=== PATIENT | female | born 1995 | race Asian ===

== ENCOUNTER 2023-11-21 09:12 | Emergency (ER) | payer OTHER ==
[~2023-11-21] VITALS: Ht 165.1 cm; Wt 68.2 kg
[2023-11-21 10:08] VITALS: BP 119/73; PULSE 94; RESP 16; TEMP 98.6; O2SAT 97
[2023-11-21 10:08] LABS: Urine Bacteria FEW /hpf (None Seen); Urine Blood Negative /uL (Negative); Urine Clarity Clear (Clear); Urine Color Yellow (Yellow); Urine Protein, UAD Negative (Negative); Urine Specific Gravity 1.015 (1.001-1.035); Urine Urobilinogen Normal (Negative); Urine WBC 53 /hpf (0 - 5)
[2023-11-21] MEDS ORDERED: CEFP200T15 PO (10:46)
[2023-11-21] MEDS: cefTRIAXone SOD 1,000 MG VL IM ONE (11:09)
== END 2023-11-21 11:13 | disposition home or self-care (01) ==
LOC: ER 09:12
DX: N39.0 Urinary tract infection, site not specified (principal); Z32.02 Encounter for pregnancy test, result negative
CPT/HCPCS: 81001; 81025; 96372; 99283; J0696

== ENCOUNTER 2025-02-11 09:54 | Emergency (ER) | payer MEDICAID, OTHER ==
[~2025-02-11] VITALS: Ht 165.1 cm; Wt 71.6 kg
[~2025-02-11 09:54] MED LIST: CEFP200T15 PO
[2025-02-11 10:48] VITALS: BP 106/80; PULSE 95; RESP 20; TEMP 98; O2SAT 96
--- NOTE | 2025-02-11 11:09 | ED.PDOC ---
Musculoskeletal HPI Comments This is a 29 year old female presenting to the ED with chief complaint of right toe numbness and pain. Patient reports that she began to experience sudden onset of right 4th/5th toe numbness with a point of tenderness and redness to the base of the 5th toe. Patient relays that she believes she may have stubbed her toe, but is unsure when she did. Patient denies any fever, chills, tingling, weakness, or difficulty ambulating. Chief Complaint: Lower Extremity Time Seen by MD: 11:06 Reviewed Notes: Nurses Notes, Medications, Allergies Allergies: Coded Allergies: NO KNOWN ALLERGIES (Unverified , 02/11/25) Information Source: Patient Mode of Arrival: Ambulatory Location: Right Extremity Location: Little Toe, Toe 4 Timing: Days Prehospital treatment: None Severity: Moderate Able to Move Extremity: Yes Bear Weight: Fully Pain: Moderate Mechanism: Unknown, Spontaneous Circumstances: Spontaneous Onset of Symptoms: Spontaneous Symptoms: Pain, Erythema DVT Risk Factors: NONE Past Medical History PAST MEDICAL HISTORY: Denies Surgical History: Denies all surgeries TREATING PLANT OPERATOR History: No Pertinent TREATING PLANT OPERATOR History Family History Family History: Reviewed,noncontributory to illness Social History Smoker: Non-Smoker Alcohol: Denies ETOH Use Drugs: Denies Drug Use Lives In: Home Constitutional: denies: chills, diaphoresis, fatigue, fever, malaise, sweats, weakness, others EENTM: denies: blurred vision, double vision, ear bleeding, ear discharge, ear drainage, ear pain, ear ringing, eye pain, eye redness, hearing loss, mouth pain, mouth swelling, nasal discharge, nose bleeding, nose congestion, nose pain, photophobia, tearing, throat pain, throat swelling, voice changes, others Respiratory: denies: cough, hemoptysis, orthopnea, SOB at rest, shortness of breath, SOB with excertion, stridor, wheezing, others Cardiovascular: denies: chest pain, dizzy spells, diaphoresis, Dyspnea on exertion, edema, irregular heart beat, left arm pain, lightheadedness, palpitations, PND, syncope, others Gastrointestinal: denies: abdomen distended, abdominal pain, blood streaked bowels, constipated, diarrhea, dysphagia, difficulty swallowing, hematemesis, melena, nausea, poor appetite, poor fluid intake, rectal bleeding, rectal pain, vomiting, others Genitourinary: denies: abnormal vagina bleeding, burning, dyspareunia, dysuria, flank pain, frequency, hematuria, incontinence, pain, , vagina discharge, urgency, others Neurological: denies: dizziness, fainting, headache, left sided numbness, left sided weakness, numbness, paresthesia, pre-existing deficit, right sided numbness, right sided weakness, seizure, speech problems, tingling, tremors, weakness, others Musculoskeletal: reports: others (Rt toe pain and numbness); denies: back pain, gout, joint pain, joint swelling, muscle pain, muscle stiffness, neck pain Integumetry: denies: bruises, change in color, change in hair/nails, dryness, laceration, lesions, lumps, rash, wounds, others Allergic/Immunocompromised: denies: Difficulty Healing, Frequent Infections, Hives, Itching, others Hematologic/Lymphatic: denies: anemia, blood clots, easy bleeding, easy bruising, swollen glands, others Endocrine: denies: excessive hunger, excessive sweating, excessive thirst, excessive urination, flushing, intolerance to cold, intolerance to heat, unexplained weight gain, unexplained weight loss, others Psychiatric: denies: anxiety, bipolar disorder, depression, hopeless, panic disorder, schizophrenia, sleepless, suicidal, others All Other Systems: Reviewed and Negative Physical Exam General Appearance: No Apparent Distress, Normal HEENT: Normal ENT Inspection, Pharynx Normal, TMs Normal Neck: Full Range of Motion, Non-Tender, Normal, Normal Inspection Respiratory: Chest Non-Tender, Lungs Clear, No Accessory Muscle Use, No Respiratory Distress, Normal Breath Sounds Cardiovascular: No Edema, No JVD, No Murmur, No Gallop, Normal Peripheral Pulses, Regular Rate/Rhythm Breast Exam: Deferred Gastrointestinal: No Organomegaly, Non Tender, No Pulsatile Mass, Normal Bowel Sounds, Soft Genitalia: Deferred Pelvic: Deferred Rectal: Deferred Extremities: No calf tenderness, Normal capillary refill, Normal inspection, Normal range of motion, Non-tender, No pedal edema Musculoskeletal : Apperance: Normal Neurologic: Alert, park services specialist II-XII nml as Tested, No Motor Deficits, Normal Affect, Normal Mood, No Sensory Deficits Cerebellar Function: Normal Reflexes: Normal Skin: Dry, Normal Color, Warm, Other (Erythema noted to base of right 5th toe.) Lymphatic: No Adenopathy Was a procedure done? Was a procedure done?: No Differential Diagnosis EXT Differential Diagnosis: Cellulitis, Fracture, Sprain, Contusion, Strain X-Ray, Labs, Meds, VS Vital Signs Date Time Temp Pulse Resp B/P (MAP) Pulse Ox O2 Delivery O2 Flow Rate FiO2 02/11/25 10:48 98.0 95 20 106/80 (89) 96 98.0 02/11/25 09:56 98.1 84 8 118/84 97 98.1 Time of 1ST Reevaluation: 12:05 Reevaluation 1ST: Unchanged Patient Education/Counseling: Diagnosis, Treatment Family Education/Counseling: Diagnosis, Treatment Departure 1 Departure Time of Disposition: 12:10 (Patient with a small area of cellulitis. We will discharge patient home with antibiotics.) Impression: Primary Impression: Cellulitis Additional Impression: Numbness of toes Disposition: HOME / SELF CARE / HOMELESS Condition: Stable Referrals: TIO BRADY DPM Additional Instructions: Your x-ray was benign. You have a small area of irritation that appears to be infected. You were prescribed antibiotics. Please take as directed. You were referred to a rubber tire and tubes supervisor. Please call for an appointment For pain you can take the followinam: Ibuprofen 400mg with food Noon: Acetaminophen 1000mg 4pm: Ibuprofen 400mg with food 8pm: Acetaminophen 1000mg You should follow up with your regular doctor within one week to ensure you are doing better. If your symptoms worsen or you have any other concerns then please return to the ER. e-Prescriptions Sulfamethoxazole W/Trimethopri (Bactrim Ds Tablet) 1 Tab Tb 1 TAB PO BID for 5 Days, #10 TAB Prov: TASH WYATT MD 02/11/25 Discharged With: Self Critical Care Note Critical Care Time?: No Stability Stability form required: No Heart Score Heart Score: Heart Score Response (Comments) Value History N/A 0 EKG N/A 0 Age N/A 0 Risk Factors N/A 0 Troponin N/A 0 Total 0 I personally scribed for TASH WYATT MD ([email or web address]) on 02/11/25 at 11:09. Electronically submitted by Tio Burgos ([email or web address]). TASH WYATT MD Feb 11, 2025 11:09
--- NOTE | 2025-02-11 11:31 | DVH ---
CLINICAL INFORMATION: right foot pain. TECHNIQUE: 3 views of the right foot were obtained. COMPARISON: None FINDINGS: No acute fracture or dislocation. No significant arthropathy. Adjacent soft tissues are unremarkable. IMPRESSION: No evidence of acute bony abnormality.
[2025-02-11] MEDS ORDERED: BACDST PO (12:11)
== END 2025-02-11 12:55 | disposition home or self-care (01) ==
LOC: MERGE 09:54 → ER 09:54
DX: L03.031 Cellulitis of right toe (principal); R20.0 Anesthesia of skin
CPT/HCPCS: 73630